=== PATIENT | male | born 1985 | race Caucasian/White ===

== ENCOUNTER 2017-09-07 12:00 | Emergency (ER) | payer SELFPAY ==
[2017-09-07] MEDS ORDERED: KETOROLAC TROMETHAMINE 60 MG/2 ML SDV IM ONE (13:00)
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
--- NOTE | 2017-09-07 13:58 | RADIOLOGY REPORT (SQ) ---
EXAM DESCRIPTION: HIP LEFT AP/LATERAL COMPLETED DATE/TIME: 09/07/2017 1:19 pm REASON FOR STUDY: pain increasing COMPARISON: Left knee films same date NUMBER OF VIEWS: Two views. TECHNIQUE: AP pelvis and additional frog-leg view of the left hip. LIMITATIONS: None. FINDINGS: MINERALIZATION: Normal. LEFT HIP: Advanced osteoarthritis is present at the left hip, with a [id number] appearance, high-gr el joint space narrowing, subcortical cyst formation, and bulky osteophyte formation along the perip juvenal of the left femoral head and acetabulum. No acute left hip fracture. Small intra-articular ossified loose bodies are seen along the femoral n soren. RIGHT HIP: No fracture or dislocation. No worrisome bone lesions. No significant joint space narrow ing or right hip bony spurring. PUBIS AND ISCHIUM: No fracture. PELVIS: No fracture. Sclerosis and ankylosis across the left SI joint. Right SI joint normal. SACRUM: No fracture or dislocation. No worrisome bone lesions. LOWER LUMBAR SPINE: No fracture or dislocation. No worrisome bone lesions. No significant disc disea se. SOFT TISSUES: No findings. OTHER: No other significant finding. IMPRESSION: Advanced osteoarthritis left hip. No acute fracture. TECHNICAL DOCUMENTATION: JOB ID: [id number] [employer]- All Rights Reserved
[2017-09-07] MEDS ORDERED: HYDROCODONE/ACETAMINOPHEN 5-325 MG 6 TAB/DSPK PO PRN (14:11)
--- NOTE | 2017-09-07 14:11 | RADIOLOGY REPORT (SQ) ---
EXAM DESCRIPTION: KNEE LEFT 4 VIEW COMPLETED DATE/TIME: 09/07/2017 1:19 pm REASON FOR STUDY: pain increasing COMPARISON: None. NUMBER OF VIEWS: Four views. TECHNIQUE: AP, lateral, and both oblique radiographic images acquired of the left knee. LIMITATIONS: None. FINDINGS: MINERALIZATION: Normal. BONES: There is cortical new periosteal bone along the left proximal tibial diaphysis, best seen on the AP view. Although this could be related to a nonossifying fibroma or sessile osteochondroma, per iosteal new bone related to tumor is also possible. Follow-up with bone scan and MRI is recommended. There is no acute fracture. JOINT: No effusion. SOFT TISSUES: No soft tissue swelling. No radio-opaque foreign body. OTHER: No other significant finding. IMPRESSION: Abnormal periosteal new bone along the proximal left tibial diaphysis laterally. Tumor cannot be excluded. Follow-up MRI and bone scan recommended. TECHNICAL DOCUMENTATION: JOB ID: [id number] [employer]- All Rights Reserved
[2017-09-07 14:39] VITALS: BP 123/67
== END 2017-09-07 14:30 | disposition home or self-care (01) ==
LOC: ER 12:00
DX: G89.29 Other chronic pain (principal); M25.562 Pain in left knee; M25.552 Pain in left hip; F17.210 Nicotine dependence, cigarettes, uncomplicated
CPT/HCPCS: 99283; 96372; 73502; 73562; J1885